=== PATIENT | female | born 1940 | race Caucasian/White ===

== ENCOUNTER → 2017-08-28 | Outpatient (CLI) | payer MEDICARE ==
[2017-08-28 18:44] LABS: PLATELET COUNT, AUTOMATED 203 10^3/uL (150-450)
[2017-08-28 19:04] LABS: INR 0.91; PROTHROMBIN TIME 12.3 SECONDS (12.4-14.5)
== END ==
LOC: M SMT 15:14
DX: J44.9 Chronic obstructive pulmonary disease, unspecified (principal); Z79.01 Long term (current) use of anticoagulants
CPT/HCPCS: 85049

== ENCOUNTER → 2017-09-12 | Outpatient (CLI) | payer MEDICARE ==
[~2017-09-12] MED LIST: LIDOCAINE 1% MDV 20ML VIAL As Ordered
== END ==
LOC: M RADPRO 08:20
DX: R91.8 Other nonspecific abnormal finding of lung field (principal); C34.90 Malignant neoplasm of unspecified part of unspecified bronchus or lung; I51.7 Cardiomegaly; Z88.2 Allergy status to sulfonamides; Z88.8 Allergy status to other drugs, medicaments and biological substances; Z91.040 Latex allergy status; Z79.82 Long term (current) use of aspirin; Z79.899 Other long term (current) drug therapy
CPT/HCPCS: 32405

== ENCOUNTER 2018-12-31 11:55 | Inpatient (IN) | payer MEDICARE ==
[~2018-12-31] VITALS: Ht 157.5 cm; Wt 66.0 kg
[~2018-12-31 11:55] MED LIST changes: +ADVA230A INH; +ALBU0.63 INH; +ALBU20IN INH; +ALDA25TA2 PO; +ASPI81TA90 PO; +BROV15NE IN; +BUDE0.5S IN; +BUDE180INH INH; +CALC600T7 PO; +CLOT1CRE4; +FLUC10TA PO; +GLIP5TAB2 PO; +GLUC5TAB3 PO; +JANU100T PO; +LEFL20TA PO; +LEVO500T PO; -LIDOCAINE 1% MDV 20ML VIAL As Ordered; +LIPI20TA PO; +LORA1TAB PO; +MAPA500T17 PO; +MEDR8TAB PO; +METO25TA2 PO; +MUCI600T34 PO; +NEXI1CAP3 PO; +NORV2TAB PO; +OCEA0.65; +PARO10TA10 PO; +PAXI20TA3 PO; +PROT40IN4 IV; +SING4GRA PO; +SPIR25TA2 PO; +VITAD1000T PO; +XANA0.5T PO; +oxygen; +spiriva INH
[2018-12-31] MEDS ORDERED: MORPHINE 2 MG/ML 1ML SYRINGE (J2270) IV ONE (13:00)
[2018-12-31 13:15] LABS: BASO # 0.1 10^3/uL (0.0-0.2); BASO % 0.3 % (0.0-1.0); EOS # 0.2 10^3/uL (0.0-0.50); EOS % 0.8 % (0.0-3.0); HEMATOCRIT 39.4 % (36.0-47.0); LYMPH # 2.1 10^3/uL (1.5-4.5); LYMPH % 10.9 % (24.0-44.0); MEAN CORPUSCULAR HEMOGLOBIN 25.8 pg (27.0-33.0); MEAN CORPUSCULAR HGB CONC 30.5 g/dl (32.0-36.5); MEAN CORPUSCULAR VOLUME 84.7 fl (80.0-96.0); MONO # 1.6 10^3/uL (0.0-0.8); MONO % 8.4 % (0.0-5.0); NEUTROPHILS # 15.3 10^3/uL (1.8-7.7); PLATELET COUNT, AUTOMATED 532 10^3/uL (150-450); RED BLOOD COUNT 4.65 10^6/uL (4.00-5.40); WHITE BLOOD COUNT 19.4 10^3/uL (4.0-10.0)
--- NOTE | 2018-12-31 13:34 | REP ---
CT Head without contrast HISTORY: Altered mental status COMPARISON: None Areas of decreased attenuation are present in the periventricular and subcortical white matter. This represents small-vessel ischemic disease. There is no intraparenchymal hemorrhage, acute infarct, mass or midline shift. The ventricular system and cortical sulci are dilated consistent with moderate volume loss. There is no extra cerebral collection. There is no fracture. The visualized sinuses are clear. IMPRESSION: 1. Small vessel ischemic disease. 2. Moderate volume loss. Electronically Signed by Mark Lees MD 12/31/2018 01:26 P
--- NOTE | 2018-12-31 13:43 | REP ---
CT cervical spine without contrast HISTORY: Altered mental status COMPARISON: None There is no acute fracture . Disc bulges are present at the C3-4 and C4-5 levels. Disc bulges with associated osteophyte formation are present at the C5-6 and C6-7 levels. There is minimal narrowing of the spinal canal. Uncinate process and/or facet hypertrophy are present at the C2-3 through C6-7 levels. These findings produce minimal to moderate narrowing of the neural foramina. The C4-5 through C7-T1 intervertebral discs are decreased in height consistent with disc degeneration. There are 2 mm of anterior subluxation of C4-5. IMPRESSION: 1. There is no acute fracture. 2. There is cervical spondylosis at the C2-3 through C7-T1 levels. Electronically Signed by Mark Lees MD 12/31/2018 01:35 P
[2018-12-31 13:45] LABS: ALBUMIN 2.8 GM/DL (3.2-5.2); ALT/SGPT 16 U/L (12-78); BILIRUBIN,DIRECT 0.1 MG/DL (0.0-0.2); BILIRUBIN,TOTAL 0.4 MG/DL (0.2-1.0); BLOOD UREA NITROGEN 20 MG/DL (7-18); CALCIUM LEVEL 10.5 MG/DL (8.8-10.2); CARBON DIOXIDE LEVEL 36 MEQ/L (21-32); CHLORIDE LEVEL 88 MEQ/L (98-107); CK-MB VALUE MASS < 1.0 NG/ML (<3.6); CPK CREATINE PHOSPHOKINASE 41 U/L (26-192); CREATININE FOR GFR 1.46 MG/DL (0.55-1.30); GLOMERULAR FILTRATION RATE 36.8 (>39); GLUCOSE, FASTING 187 MG/DL (70-100); MB/CK RELATIVE INDEX 2.44 (< OR =4); POTASSIUM SERUM 4.7 MEQ/L (3.5-5.1); SODIUM LEVEL 131 MEQ/L (136-145); TOTAL PROTEIN 7.4 GM/DL (6.4-8.2); TROPONIN I < 0.02 NG/ML (< 0.10)
--- NOTE | 2018-12-31 13:53 | REP ---
CT thoracic spine without contrast. HISTORY: Neck pain COMPARISON : None There is no acute fracture or subluxation. There is no a definite disc bulge or herniation. Posterior osteophytes are present at the T7-8 and T9 levels. There is minimal narrowing of the spinal canal. The neural foramina are patent. There is loss of height of multiple thoracic intervertebral discs. Vacuum phenomenon is present at the T6-7 through T10-11 levels. These findings are consistent with disc degeneration. Anterior osteophytes are present throughout the thoracic spine. Parenchymal density is present in the the left lower lobe consistent with atelectasis or infiltrate. A left pleural effusion is present. Atherosclerotic calcification is present in the thoracic aorta. IMPRESSION: 1. There is no acute fracture or subluxation. 2. Degenerative change as described above. 3. Left lower lobe atelectasis or infiltrate and left pleural effusion. Electronically Signed by Mark Lees MD 12/31/2018 01:44 P
--- NOTE | 2018-12-31 14:08 | REP ---
CT LUMBAR SPINE WITHOUT CONTRAST: HISTORY: Altered mental status. A diffuse disc bulge is present at the L1-2 level. There is minimal compression of the thecal sac. The L1 nerves exit the neural foramina without compression. A diffuse disc bulge is present at the L2-3 level. There is minimal compression of the thecal sac. The L2 nerves exit the neural foramina without compression. A diffuse disc bulge is present at the L3-4 level. There is hypertrophy of the ligamenta flava and posterior articulating facets. These findings produce mild central canal stenosis. There is compression of the left L3 nerve in the neural foramen. The right L3 nerve exits the neural foramen without compression. A diffuse disc bulge is present at the L4-5 level. There is hypertrophy of the ligamenta flava and posterior articulating facets. These findings produce mild central canal stenosis. There is compression of the left L4 nerve in the neural foramen. The right L4 nerve exits the neural foramen without compression. A diffuse disc bulge is present at the L5-S1 level. There is minimal compression of the thecal sac. There is hypertrophy of the posterior articulating facets. The L5 nerves exit the neural foramina without compression. The lumbar intervertebral discs are decreased in height. Vacuum phenomenon is present at the L1-2, L3-4 and L4-5 levels. These findings are consistent with disc degeneration. There is no fracture or subluxation. The left kidney is atrophic. Atherosclerotic calcification is present in the abdominal aorta. IMPRESSION: 1. Diffuse disc bulges at the L1-2, L2-3 and L5-S1 levels with minimal thecal sac compression. 2. Mild central canal stenosis at the L3-4 and L4-5 levels secondary to disc bulge, ligamentous and facet hypertrophy. Electronically Signed by Mark Lees MD 12/31/2018 02:13 P
[2018-12-31] MEDS ORDERED: PERCOCET 5MG/325MG TAB PO ONE (14:45)
[2018-12-31] MEDS ORDERED: NALOXONE INJ 0.4 MG/1 ML VIAL (J2310) IV PRN (15:00)
[2018-12-31] MEDS ORDERED: ONDANSETRON 4MG/2ML VIAL (J2405) IV PRN (15:00)
[2018-12-31] MEDS ORDERED: MORPHINE 1MG/ML IN 0.9% NACL 100ML IV BAG IV PRN (15:00)
[2018-12-31] MEDS ORDERED: NS 1,000 ML IV SCH ×2 (15:00)
[2018-12-31] MEDS ORDERED: IPRATROPIUM 0.5MG/ALBUTEROL 2.5MG INH SOL UD 3ML (DUONEB)(J7620) NEB PRN (15:00)
[2018-12-31] MEDS ORDERED: NALBUPHINE HCL 10 MG/ML AMP (J2300) IV PRN (15:00)
[2018-12-31] MEDS ORDERED: EPIDURAL/PCA KEYS XX PRN (15:00)
[2018-12-31] MEDS ORDERED: PIPERACILLIN/TAZOBACTAM SOD 3.375 GM in D5W MINI-BAG PLUS 50 ML IV ONE (15:00)
[2018-12-31] MEDS ORDERED: diphenhydrAMINE INJ 50MG/ML VIAL (J1200) IV PRN (15:00)
--- NOTE | 2018-12-31 15:06 | REP ---
Portable chest x-ray: Single view. History: Altered mental status. Comparison study: September 12, 2017. Findings: There is increased density in the left base opacifying the lower half of the left hemithorax as a new finding. This obscures the left heart border. It is compatible with combination of pleural fluid and parenchymal disease in the left lower lobe, atelectasis versus infiltrate. Moderate cardiomegaly is observed. There is linear fibrosis in the right base. No right effusion is seen. Some vascular calcification is noted. Interstitial markings are diffusely somewhat prominent. Impression: Left pleural effusion with atelectasis and/or infiltrate left base. New finding. Moderate cardiomegaly. Right base linear fibrosis. Electronically Signed by Michael Erazo MD 12/31/2018 08:13 P
[2018-12-31] MEDS ORDERED: SCOPOLAMINE 1MG TRANSDERMAL PATCH TOP PRN ×2 (15:15→18:30)
[2018-12-31] MEDS ORDERED: FLEET ENEMA PR PRN (15:15)
[2018-12-31] MEDS ORDERED: LORA0.5T11 PO (15:26)
[2018-12-31] MEDS ORDERED: BROV15NE INH (15:26)
[2018-12-31] MEDS ORDERED: PARO40TA3 PO (15:26)
[2018-12-31] MEDS ORDERED: PRED10TA2 PO (15:26)
[2018-12-31] MEDS ORDERED: METO1TAB33 PO (15:26)
[2018-12-31] MEDS ORDERED: ACET-907 PO (15:26)
[2018-12-31] MEDS ORDERED: PANT-23 PO (15:26)
[2018-12-31] MEDS ORDERED: FURO40TA2 PO (15:26)
[2018-12-31] MEDS ORDERED: MORP20SOL PO (15:26)
[2018-12-31] MEDS ORDERED: AMLO10TA5 PO (15:26)
[2018-12-31] MEDS ORDERED: MOM 30ML SUSPENSION UDC PO PRN (15:30)
[2018-12-31] MEDS ORDERED: BIOF4GEL2 TOP (15:30)
[2018-12-31] MEDS ORDERED: METAMUCIL (PSYLLIUM) PACKET PO PRN (15:30)
[2018-12-31] MEDS ORDERED: ASPI81TA85 PO (15:30)
[2018-12-31] MEDS ORDERED: ANALGESIC BALM CRM 120 GM TOP PRN (15:45)
--- NOTE | 2018-12-31 15:50 | HPEPDOC ---
General Date of Admission December 31, 2018 at 15:13 Chief Complaint The patient is a 78-year-old female admitted with a reason for visit of Squamous Cell Lung Cancer. 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 It was noted that patient was in hospice before but no longer in hospice as pt went to the ER prior while she was in hospice. Patient reported constant severe sharp pain in b/l lumbar back pain and b/l shoulder pain that worsens with movement. She reported chills and that she had been coughing up blood starting 4 days ago. When being asked if she has any sputum, pt answered yes and replied that she has pink color sputum, reported chills but no fever. Reported 1 sick contact months ago. Denies any chest pain, palpitation, SOB. Pt reported mild abdominal pain but reported constipation 1 BM every 3 days, and that her abd pain was improved after BM. PT reported that at this time she will want to be COMFORT MEASURE ONLY Home Medications Scheduled Amlodipine Besylate (Amlodipine Besylate) 10 Mg Tablet, 10 MG PO DAILY, (Reported) Arformoterol Tartrate (Brovana) 15 Mcg/2 Ml Vial.neb, 15 MCG INH BID, (Reported) Aspirin (Aspir 81) 81 Mg Tablet.dr, 81 MG PO DAILY, (Reported) Furosemide (Furosemide) 40 Mg Tablet, 40 MG PO DAILY, (Reported) Lorazepam (Lorazepam) 0.5 Mg Tablet, 0.25 MG PO BID, (Reported) Metoprolol Succinate (Metoprolol Succinate) 100 Mg Tab.er.24h, 100 MG PO DAILY, (Reported) Pantoprazole Sodium (Pantoprazole Sodium) 40 Mg Tablet.dr, 40 MG PO DAILY, (Reported) Paroxetine HCl (Paroxetine) 40 Mg Tablet, 40 MG PO QHS, (Reported) Prednisone (Prednisone) 10 Mg Tablet, 20 MG PO DAILY, (Reported) Scheduled PRN Acetaminophen (Tylenol) 325 Mg Tablet, 650 MG PO Q4H PRN for PAIN, (Reported) Menthol (Biofreeze) 118 Ml Gel..ml., 1 APLCT TOP QID PRN for PAIN, (Reported) APPLY TO ENTIRE BACK Morphine Sulfate (Morphine Sulfate Concentrate) 100 Mg/5 Ml Solution, 0.5 ML PO Q2H PRN for PAIN, (Reported) Allergies Coded Allergies: Sulfa (Sulfonamide Antibiotics) (Verified Allergy, Unknown, 12/31/18) Past Medical History Medical History 1. Stage 4 Squamous cell carcinoma of the lung 2. Bronchiectasis 3. Hx of bronchospasm 4. Rheumatoid arthritis 5. Type 2 DM 6. Hypercholesterolemia 7. HTN 8. KALA; non-compliant with CPAP 9. Hx of rheumatoid lung disease 10. Hx of hysterectomy 11. Bladder suspension 12. Hx of "intestinal repair" 13. Vitamin D deficiency 14. Long hx of CAD 15. PMH of Oral Candidiasis 16. PMH of Vaginal yeast Family History Mother at 77 yo from cancer Father at 59 yo from heart disease 4 brothers who from heart disease and one sister who from lung cancer Social History * Smoker: Denies, former Smoker (former 20 pkX yr hx) Alcohol: Denies Drugs: denies Recent Travel/Sick Contacts: Reports: Recent sick contacts (reported sick contact with cold-like symptoms months ago) Pt was in hospice, now lives at home A-FIB/CHADSVASC A-FIB History Current/History of A-Fib/PAF?: No Review of Systems Constitutional: Reports: Chills, Other (decreased appetite); Denies: Fever Pulmonary: Reports: Cough, Other Symptoms (hemoptysis); Denies: Dyspnea, Pleuritic Chest Pain Cardiovascular: Denies: Chest Pain, Palpitations Gastrointestinal: Reports: Abdominal Pain, Constipation; Denies: Nausea, Vomiting, Diarrhea, Melena, Hematochezia Musculoskeletal: Reports: Back Pain (b/l lumbar back pain), Shoulder Pain (b/l) Neurological: Denies: Weakness, Numbness, Change in speech, Confusion Physical Examination General Exam: Positive: Alert, Mild Distress Eye Exam: Positive: Conjunctiva & lids normal; Negative: Sclera icteric ENT Exam: Positive: Atraumatic, Mucous membr. moist/pink Neck Exam: Positive: Supple Chest Exam: Positive: Clear to auscultation, Normal air movement; Negative: Rales, Rhonchi, Wheezing Heart Exam: Positive: Rate Normal, Regular Rhythm, Normal S1, Normal S2; Negative: Murmurs Abdomen Exam: Positive: BS Hypoactive, Soft; Negative: Tenderness Extremity Exam: Positive: Normal pulses Skin Exam: Positive: Nl turgor and temperature Neuro Exam: Positive: Normal Speech, Normal Tone Psych Exam: Positive: Mental status NL, Memory Intact, Oriented x 3 Vital Signs Vital Signs Date Time Temp Pulse Resp B/P (MAP) Pulse Ox O2 Delivery O2 Flow Rate FiO2 12/31/18 15:18 98.8 91 18 159/67 96 3.0 12/31/18 14:45 Nasal Cannula Laboratory Data Labs 24H Laboratory Tests 2 12/31/18 12:57: Anion Gap 7L, Glomerular Filtration Rate 36.8L, Calcium Level 10.5H, Aspartate Amino Transf (AST/SGOT) 20, Alanine Aminotransferase (ALT/SGPT) 16, Alkaline Phosphatase 85, Total Bilirubin 0.4, Direct Bilirubin 0.1, Total Creatine Kinase 41, Creatine Kinase MB < 1.0, Creatine Kinase MB Relative Index 2.44, Troponin I < 0.02, Total Protein 7.4, Albumin 2.8L, Albumin/Globulin Ratio 0.61L, Thyroid Stimulating Hormone (TSH) 1.700 12/31/18 12:58: Immature Granulocyte % (Auto) 0.6, White Blood Count 19.4H, Red Blood Count 4.65, Hemoglobin 12.0, Hematocrit 39.4, Mean Corpuscular Volume 84.7, Mean Corpuscular Hemoglobin 25.8L, Mean Corpuscular Hemoglobin Concent 30.5L, Red Cell Distribution Width 15.4H, Platelet Count 532H, Neutrophils (%) (Auto) 79.0H, Lymphocytes (%) (Auto) 10.9L, Monocytes (%) (Auto) 8.4H, Eosinophils (%) (Auto) 0.8, Basophils (%) (Auto) 0.3, Neutrophils # (Auto) 15.3H, Lymphocytes # (Auto) 2.1, Monocytes # (Auto) 1.6H, Eosinophils # (Auto) 0.2, Basophils # (Auto) 0.1, Nucleated Red Blood Cells % (auto) 0.0, Lactic Acid Level 1.2 CBC/BMP Laboratory Tests 12/31/18 12:57 12/31/18 12:58 Red Blood Count 4.65, Mean Corpuscular Volume 84.7, Mean Corpuscular Hemoglobin 25.8 L, Mean Corpuscular Hemoglobin Concent 30.5 L, Red Cell Distribution Width 15.4 H, Neutrophils (%) (Auto) 79.0 H, Lymphocytes (%) (Auto) 10.9 L, Monocytes (%) (Auto) 8.4 H, Eosinophils (%) (Auto) 0.8, Basophils (%) (Auto) 0.3, Neutrophils # (Auto) 15.3 H, Lymphocytes # (Auto) 2.1, Monocytes # (Auto) 1.6 H, Eosinophils # (Auto) 0.2, Basophils # (Auto) 0.1 Problems (1) Acute back pain Status: Acute Problem Text: Reported acute intractable b/l shoulder and lumbar back pain at h ome. Lumbar, thoracic, and cervical x ray showed spondylopathy without radiographic signs of metastasis. Pt reported would like to be on COMMODITIES MANAGER only. Patient will be on MEDIA PROFESSIONAL and continue to monitor the pt; may increase/add pain meds if required (2) Squamous cell lung cancer Problem Text: Stage 4 squamous cell carcinoma of the lung. Pt saw Dr. Welch as outpt and decided not to pursue any treatment. She was in hospice prior but currently lives at home with MEDIA PROFESSIONAL for pain control. Pt reported coughing up blood starting from 4 days ago. Pt reported that she wants to be comfort measure only. Currently sat well on 3L NC. MEDIA PROFESSIONAL ordered. Left pleural effusion vs infiltrate. Hospice consult ordered (3) Community acquired pneumonia Problem Text: Reported chills and productive cough with pink color sputum. Pt will be on Moxifloaxacin. Cont to monitor the pt. Tylenol PRN. (4) Constipation Problem Text: Pt reported hard stool every 3 days. Milk of mag, metamucil, and fleet enema PRN. (5) Type 2 diabetes mellitus Problem Text: Pt not on DM meds at home. COMMODITIES MANAGER, cont to monitor the pt (6) Depression with anxiety Problem Text: Cont home med Paroxetine with Ativan (7) Rheumatoid lung disease with rheumatoid arthritis Problem Text: Pt not on outpt meds for RA. On Serverent and duoneb. Plan / VTE VTE Prophylaxis Ordered?: No (COMMODITIES MANAGER) Plan IVF: Initiate BOWEN SIERRA DO December 31, 2018 15:50
[2018-12-31] MEDS ORDERED: PILL CRUSHER/CUTTER 1 EACH XX PRN (16:00)
[2018-12-31] MEDS: MOXIFLOXACIN 400 MG TAB PO SCH (17:14)
[2018-12-31 17:35] VITALS: BP 145/68
[2018-12-31] MEDS ORDERED: ACETAMINOPHEN TAB 650MG DOSE (2X325MG) PO PRN (17:45)
[2018-12-31] MEDS: SALMETEROL DISKUS 50MCG INHALER (SEREVENT) INH SCH (20:00)
[2018-12-31] MEDS: IPRATROPIUM 0.5MG/ALBUTEROL 2.5MG INH SOL UD 3ML (DUONEB)(J7620) NEB SCH (20:41)
[2018-12-31] MEDS: LORazepam 0.5 MG TAB PO SCH (21:07)
[2018-12-31] MEDS: PARoxetine 20 MG TAB PO SCH (21:08)
[2018-12-31] MEDS: MORPHINE 10MG/0.5ML ORAL CONCENTRATE SOLUTION U/D SL PRN (23:42)
[2019-01-01] MEDS: IPRATROPIUM 0.5MG/ALBUTEROL 2.5MG INH SOL UD 3ML (DUONEB)(J7620) NEB SCH ×4 (02:00→19:39)
[2019-01-01] MEDS: MOXIFLOXACIN 400 MG TAB PO SCH (05:52)
[2019-01-01 06:00] VITALS: BP 126/89
[2019-01-01] MEDS: SALMETEROL DISKUS 50MCG INHALER (SEREVENT) INH SCH ×2 (07:22→19:39)
[2019-01-01] MEDS: predniSONE 10 MG TAB PO SCH (09:57)
[2019-01-01] MEDS: PANTOPRAZOLE 40MG TAB (PROTONIX) PO SCH (09:57)
[2019-01-01] MEDS: ASPIRIN 81 MG ENTERIC TAB PO SCH (09:57)
[2019-01-01] MEDS: amLODIPine 10 MG TAB PO SCH (09:57)
[2019-01-01 09:58] VITALS: BP 126/89
[2019-01-01] MEDS: METOPROLOL SUCC (TopROL XL) 100MG *XL* TAB PO SCH (09:58)
[2019-01-01] MEDS: LORazepam 0.5 MG TAB PO SCH ×2 (09:58→20:19)
[2019-01-01] MEDS: **NOTE PATIENT COMMENT** MISC XX SCH (09:59)
[2019-01-01] MEDS: LORazepam 2 MG/ML VIAL (J2060) IV PRN ×3 (13:14→22:03)
--- NOTE | 2019-01-01 13:56 | IPNPDOC ---
Date Seen The patient was seen on 01/01/19. Progress Note SUBJECTIVE: Yesterday on iv morphine cutter and edge trimmer pump, pt became lethargic. Per family, pt was fine with roxanol at home, so roxanol was ordered prn for pain. Awaiting Hospice acceptance . 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 no c/o pain, but was very agitated this morning, requiring a sitter. PHYSICAL EXAMINATION: VITALS: PLS SEE BELOW General Exam: Positive: Alert, Mild Distress Eye Exam: Positive: Conjunctiva & lids normal; Negative: Sclera icteric ENT Exam: Positive: Atraumatic, Mucous membr. moist/pink Neck Exam: Positive: Supple Chest Exam: Positive: Clear to auscultation, Normal air movement; Negative: Rales, Rhonchi, Wheezing Heart Exam: Positive: Rate Normal, Regular Rhythm, Normal S1, Normal S2; Negative: Murmurs Abdomen Exam: Positive: BS Hypoactive, Soft; Negative: Tenderness Extremity Exam: Positive: Normal pulses Skin Exam: Positive: Nl turgor and temperature Neuro Exam: Positive: Normal Speech, Normal Tone Psych Exam: Positive: Mental status NL, Memory Intact, Oriented x 3 LABORATORY DATA, IMAGING STUDIES, MICROBIOLOGY: REVIEWED, PLS SEE BELOW ASSESSMENT AND PLAN: Pt is a 78 yo female with PMH of 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 It was noted that patient was in hospice before but no longer in hospice as pt went to the ER prior while she was in hospice. Patient reported constant severe sharp pain in b/l lumbar back pain and b/l shoulder pain that worsens with movement. She reported chills and that she had been coughing up blood starting 4 days ago. When being asked if she has any sputum, pt answered yes and replied that she has pink color sputum, reported chills but no fever. Reported 1 sick contact months ago. Denies any chest pain, palpitation, SOB. Pt reported mild abdominal pain but reported constipation 1 BM every 3 days, and that her abd pain was improved after BM. PT reported that at this time she will want to be COMFORT MEASURE ONLY Squamous cell lung cancer . Pt saw Dr. Welch as outpt and decided not to pursue any treatment. She was in hospice prior but currently lives at home with SIGN LETTERER for pain control. Pt reported coughing up blood starting from 4 days ago. Pt reported that she wants to be comfort measure only. Currently sat well on 3L NC. SIGN LETTERER ordered. Left pleural effusion vs infiltrate. Hospice consult ordered Community acquired pneumonia on Moxifloaxacin. Cont to monitor the pt. Tylenol PRN. Constipation Milk of mag, metamucil, and fleet enema PRN. 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 On Serverent and duoneb. disposition: pfs consulted for hospice referral . 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
[2019-01-01 14:00] VITALS: BP 125/80
[2019-01-01] MEDS: PARoxetine 20 MG TAB PO SCH (19:41)
[2019-01-02] MEDS: LORazepam 2 MG/ML VIAL (J2060) IV PRN ×6 (01:07→21:55)
[2019-01-02] MEDS: IPRATROPIUM 0.5MG/ALBUTEROL 2.5MG INH SOL UD 3ML (DUONEB)(J7620) NEB SCH ×4 (02:00→20:00)
[2019-01-02] MEDS: MORPHINE 10MG/0.5ML ORAL CONCENTRATE SOLUTION U/D SL PRN ×3 (03:58→19:05)
[2019-01-02] MEDS: MOXIFLOXACIN 400 MG TAB PO SCH (05:11)
[2019-01-02 06:00] VITALS: BP 151/63
[2019-01-02] MEDS: ASPIRIN 81 MG ENTERIC TAB PO SCH (07:43)
[2019-01-02] MEDS: amLODIPine 10 MG TAB PO SCH (07:43)
[2019-01-02] MEDS: LORazepam 0.5 MG TAB PO SCH ×2 (07:43→20:20)
[2019-01-02] MEDS: PANTOPRAZOLE 40MG TAB (PROTONIX) PO SCH (07:43)
[2019-01-02] MEDS: predniSONE 10 MG TAB PO SCH (07:43)
[2019-01-02] MEDS: METOPROLOL SUCC (TopROL XL) 100MG *XL* TAB PO SCH (07:43)
[2019-01-02 07:47] LABS: BASO % 0.2 % (0.0-1.0); EOS # 0.4 10^3/uL (0.0-0.50); EOS % 1.9 % (0.0-3.0); HEMATOCRIT 37.4 % (36.0-47.0); HEMOGLOBIN 11.2 g/dl (12.0-15.5); LYMPH # 1.2 10^3/uL (1.5-4.5); LYMPH % 6.3 % (24.0-44.0); MEAN CORPUSCULAR HEMOGLOBIN 25.6 pg (27.0-33.0); MEAN CORPUSCULAR HGB CONC 29.9 g/dl (32.0-36.5); MEAN CORPUSCULAR VOLUME 85.4 fl (80.0-96.0); MONO # 1.9 10^3/uL (0.0-0.8); MONO % 9.5 % (0.0-5.0); NEUTROPHILS # 15.9 10^3/uL (1.8-7.7); NEUTROPHILS % 81.6 % (36.0-66.0); PLATELET COUNT, AUTOMATED 483 10^3/uL (150-450); RED BLOOD COUNT 4.38 10^6/uL (4.00-5.40); WHITE BLOOD COUNT 19.5 10^3/uL (4.0-10.0)
[2019-01-02] MEDS: SALMETEROL DISKUS 50MCG INHALER (SEREVENT) INH SCH (08:00)
[2019-01-02 08:16] LABS: CALCIUM LEVEL 9.7 MG/DL (8.8-10.2); CREATININE FOR GFR 1.45 MG/DL (0.55-1.30); GLOMERULAR FILTRATION RATE 37.1 (>39); POTASSIUM SERUM 4.5 MEQ/L (3.5-5.1)
--- NOTE | 2019-01-02 08:20 | IPNPDOC ---
Date Seen The patient was seen on 01/02/19. Progress Note SUBJECTIVE: Pt was agitated yesterday requiring a sitter. pt is still very much confused but much more subdued, mumbling in bed lying on her left side. 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 PHYSICAL EXAMINATION: VITALS: PLS SEE BELOW General Exam: Positive: Alert, Mild Distress Eye Exam: Positive: Conjunctiva & lids normal; Negative: Sclera icteric ENT Exam: Positive: Atraumatic, Mucous membr. moist/pink Neck Exam: Positive: Supple Chest Exam: Positive: Clear to auscultation, Normal air movement; Negative: Rales, Rhonchi, Wheezing Heart Exam: Positive: Rate Normal, Regular Rhythm, Normal S1, Normal S2; Negative: Murmurs Abdomen Exam: Positive: BS Hypoactive, Soft; Negative: Tenderness Extremity Exam: Positive: Normal pulses Skin Exam: Positive: Nl turgor and temperature Neuro Exam: Positive: Normal Speech, Normal Tone Psych Exam: Positive: Mental status NL, Memory Intact, Oriented x 3 LABORATORY DATA, IMAGING STUDIES, MICROBIOLOGY: REVIEWED, PLS SEE BELOW ASSESSMENT AND PLAN: Pt is a 78 yo female with PMH of 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 It was noted that patient was in hospice before but no longer in hospice as pt went to the ER prior while she was in hospice. Patient reported constant severe sharp pain in b/l lumbar back pain and b/l shoulder pain that worsens with movement. She reported chills and that she had been coughing up blood starting 4 days ago. When being asked if she has any sputum, pt answered yes and replied that she has pink color sputum, reported chills but no fever. Reported 1 sick contact months ago. Denies any chest pain, palpitation, SOB. Pt reported mild abdominal pain but reported constipation 1 BM every 3 days, and that her abd pain was improved after BM. PT reported that at this time she will want to be COMFORT MEASURE ONLY Squamous cell lung cancer Pt saw Dr. Welch as outpt and decided not to pursue any treatment. She was in hospice prior but currently lives at home with SHRIMP PEELER for pain control. Pt reported coughing up blood starting from 4 days ago. Pt reported that she wants to be comfort measure only. Currently sat well on 3L NC. SHRIMP PEELER ordered. Left pleural effusion vs infiltrate. 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 Cont to monitor the pt. Tylenol PRN. Constipation Milk of mag, metamucil, and fleet enema PRN. Type 2 diabetes mellitus FISCAL CLERK, cont to monitor the pt Depression with anxiety Cont home med Paroxetine with Ativan Rheumatoid lung disease with rheumatoid arthritis Pt not on outpt meds for RA. On Serverent and duoneb. disposition: pfs consulted for hospice referral . 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 A-FIB/CHADSVASC A-FIB History Current/History of A-Fib/PAF?: No Current Oral Anticoagulant The: No VS, I&O, 24H, Fishbone Vital Signs/I&O Vital Signs Date Time Temp Pulse Resp B/P (MAP) Pulse Ox O2 Delivery O2 Flow Rate FiO2 01/02/19 06:00 99.7 84 20 151/63 (92) 94 01/01/19 21:50 3.0 12/31/18 17:16 Nasal Cannula I&O- Last 24 Hours up to 6 AM 01/02/19 05:59 Intake Total 895 ml Output Total 0 ml Balance 895 ml Laboratory Data 24H LABS Laboratory Tests 2 01/02/19 07:32: Immature Granulocyte % (Auto) 0.5, White Blood Count 19.5H, Red Blood Count 4.38, Hemoglobin 11.2L, Hematocrit 37.4, Mean Corpuscular Volume 85.4, Mean Corpuscular Hemoglobin 25.6L, Mean Corpuscular Hemoglobin Concent 29.9L, Red Cell Distribution Width 15.8H, Platelet Count 483H, Neutrophils (%) (Auto) 81.6H, Lymphocytes (%) (Auto) 6.3L, Monocytes (%) (Auto) 9.5H, Eosinophils (%) (Auto) 1.9, Basophils (%) (Auto) 0.2, Neutrophils # (Auto) 15.9H, Lymphocytes # (Auto) 1.2L, Monocytes # (Auto) 1.9H, Eosinophils # (Auto) 0.4, Basophils # (Aut o) 0.0, Nucleated Red Blood Cells % (auto) 0.0, Anion Gap 6L, Glomerular Filtration Rate 37.1L, Blood Urea Nitrogen 22H, Creatinine 1.45H, Sodium Level 135L, Potassium Level 4.5, Chloride Level 95L, Carbon Dioxide Level 34H, Calcium Level 9.7 CBC/BMP Laboratory Tests 01/02/19 07:32 Red Blood Count 4.38, Mean Corpuscular Volume 85.4, Mean Corpuscular Hemoglobin 25.6 L, Mean Corpuscular Hemoglobin Concent 29.9 L, Red Cell Distribution Width 15.8 H, Neutrophils (%) (Auto) 81.6 H, Lymphocytes (%) (Auto) 6.3 L, Monocytes (%) (Auto) 9.5 H, Eosinophils (%) (Auto) 1.9, Basophils (%) (Auto) 0.2, Neutrophils # (Auto) 15.9 H, Lymphocytes # (Auto) 1.2 L, Monocytes # (Auto) 1.9 H, Eosinophils # (Auto) 0.4, Basophils # (Auto) 0.0, Calcium Level 9.7 AILYN KEITH MD January 02, 2019 08:20
[2019-01-02] MEDS: **NOTE PATIENT COMMENT** MISC XX SCH (09:00)
--- NOTE | 2019-01-02 17:32 | ECGEPIP ---
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
[2019-01-02] MEDS: PARoxetine 20 MG TAB PO SCH (20:21)
[2019-01-03] MEDS: LORazepam 2 MG/ML VIAL (J2060) IV PRN ×4 (00:39→21:50)
[2019-01-03] MEDS: IPRATROPIUM 0.5MG/ALBUTEROL 2.5MG INH SOL UD 3ML (DUONEB)(J7620) NEB SCH ×4 (02:00→20:17)
[2019-01-03] MEDS: MOXIFLOXACIN 400 MG TAB PO SCH (05:22)
[2019-01-03] MEDS: MORPHINE 10MG/0.5ML ORAL CONCENTRATE SOLUTION U/D SL PRN ×4 (05:49→21:50)
[2019-01-03 06:00] VITALS: BP 160/72
[2019-01-03] MEDS: SALMETEROL DISKUS 50MCG INHALER (SEREVENT) INH SCH ×3 (08:00→20:00)
[2019-01-03] MEDS: LORazepam 0.5 MG TAB PO SCH ×2 (08:50→21:00)
[2019-01-03] MEDS: PANTOPRAZOLE 40MG TAB (PROTONIX) PO SCH (08:51)
[2019-01-03] MEDS: ASPIRIN 81 MG ENTERIC TAB PO SCH (08:51)
[2019-01-03] MEDS: amLODIPine 10 MG TAB PO SCH (08:51)
[2019-01-03] MEDS: predniSONE 10 MG TAB PO SCH (08:51)
[2019-01-03] MEDS: METOPROLOL SUCC (TopROL XL) 100MG *XL* TAB PO SCH (08:52)
[2019-01-03] MEDS: **NOTE PATIENT COMMENT** MISC XX SCH (08:52)
--- NOTE | 2019-01-03 10:29 | IPNPDOC ---
Date Seen The patient was seen on 01/03/19. 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 just received ativan due to severe agitation per RN, still requiring a sitter. Per sitter, pt usually gets belligerent when she wakes up, and has not been eating well, only about 10-15% of her meals. Pt snacks on her raspberries at the bedside. PHYSICAL EXAMINATION: VITALS: PLS SEE BELOW General Exam: sedated. dry mucus membranes Eye Exam: Positive: Conjunctiva & lids normal; Negative: Sclera icteric ENT Exam: Positive: Atraumatic Neck Exam: Positive: Supple Chest Exam: Positive: Clear to auscultation, Normal air movement; Negative: Rales, Rhonchi, Wheezing Heart Exam: Positive: Rate Normal, Regular Rhythm, Normal S1, Normal S2; Negative: Murmurs Abdomen Exam: Positive: BS Hypoactive, Soft; Negative: Tenderness Extremity Exam: Positive: Normal pulses Skin Exam: Positive: Nl turgor and temperature Neuro Exam: Positive: Normal Speech, Normal Tone Psych Exam: Positive: Mental status NL, Memory Intact, Oriented x 3 LABORATORY DATA, IMAGING STUDIES, MICROBIOLOGY: REVIEWED, PLS SEE BELOW ASSESSMENT AND PLAN: Pt is a 78 yo female with PMH of 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 It was noted that patient was in hospice before but no longer in hospice as pt went to the ER prior while she was in hospice. Patient reported constant severe sharp pain in b/l lumbar back pain and b/l shoulder pain that worsens with movement. She reported chills and that she had been coughing up blood starting 4 days ago. When being asked if she has any sputum, pt answered yes and replied that she has pink color sputum, reported chills but no fever. Reported 1 sick contact months ago. Denies any chest pain, p alpitation, SOB. Pt reported mild abdominal pain but reported constipation 1 BM every 3 days, and that her abd pain was improved after BM. PT reported that at this time she will want to be COMFORT MEASURE ONLY Squamous cell lung cancer Pt saw Dr. Welch as outpt and decided not to pursue any treatment. She was in hospice prior but currently lives at home with DELICATESSEN DEPARTMENT MANAGER for pain control. Pt reported coughing up blood starting from 4 days ago. Pt reported that she wants to be comfort measure only. Currently sat well on 3L NC. DELICATESSEN DEPARTMENT MANAGER ordered. Left pleural effusion vs infiltrate. Hospice consult ordered Acute Delirium in the setting of Chronic Dementia ed teacher sitter Community acquired pneumonia on Moxifloxacin. Cont to monitor the pt. Tylenol PRN. Constipation Milk of mag, metamucil, and fleet enema PRN. Type 2 diabetes mellitus CHIPPER OPERATOR, cont to monitor the pt Depression with anxiety Cont home med Paroxetine with Ativan Rheumatoid lung disease with rheumatoid arthritis Pt not on outpt meds for RA. On Serverent and duoneb. disposition: pfs consulted for hospice referral . dnr dni ed teacher A-FIB/CHADSVASC SCREEN A-FIB/CHADSVASC A-FIB History Current/History of A-Fib/PAF?: No Current Oral Anticoagulant The: No A-FIB/CHADSVASC A-FIB History Current/History of A-Fib/PAF?: No Current Oral Anticoagulant The: No VS, I&O, 24H, Fishbone Vital Signs/I&O Vital Signs Date Time Temp Pulse Resp B/P (MAP) Pulse Ox O2 Delivery O2 Flow Rate FiO2 01/03/19 09:06 22 01/03/19 09:00 3.0 01/03/19 07:46 108 01/03/19 06:00 97.0 160/72 (101) 91 12/31/18 17:16 Nasal Cannula I&O- Last 24 Hours up to 6 AM 01/03/19 06:00 Intake Total 0 ml Output Total 0 ml Balance 0 ml AILYN KEITH MD January 03, 2019 10:29
[2019-01-03] MEDS: PARoxetine 20 MG TAB PO SCH (21:00)
[2019-01-04] MEDS: MORPHINE 10MG/0.5ML ORAL CONCENTRATE SOLUTION U/D SL PRN ×5 (00:52→22:23)
[2019-01-04] MEDS: IPRATROPIUM 0.5MG/ALBUTEROL 2.5MG INH SOL UD 3ML (DUONEB)(J7620) NEB SCH ×4 (01:15→19:57)
[2019-01-04] MEDS: LORazepam 2 MG/ML VIAL (J2060) IV PRN ×4 (01:20→23:19)
[2019-01-04] MEDS: MOXIFLOXACIN 400 MG TAB PO SCH (05:37)
[2019-01-04 06:00] VITALS: BP 194/88
--- NOTE | 2019-01-04 06:52 | IPNPDOC ---
Date Seen The patient was seen on 01/04/19. Progress Note SUBJECTIVE: Pt's blood pressure is uncontrolled with systolic of 190. Pain meds for BUILDING WRECKER adequately given, but pt unable to complain of symptoms due to AMS and acute delirium on baseline dementia. at best, pt mumbles and is incoherent. 9am norvasc and metoprolol given now. 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 just received ativan due to severe agitation per RN, still requiring a sitter. Per sitter, pt usually gets belligerent when she wakes up, and has not been eating well, only about 10-15% of her meals. Pt snacks on her raspberries at the bedside. PHYSICAL EXAMINATION: VITALS: PLS SEE BELOW General Exam: sedated. dry mucus membranes Eye Exam: Positive: Conjunctiva & lids normal; Negative: Sclera icteric ENT Exam: Positive: Atraumatic Neck Exam: Positive: Supple Chest Exam: Positive: Clear to auscultation, Normal air movement; Negative: Rales, Rhonchi, Wheezing Heart Exam: Positive: Rate Normal, Regular Rhythm, Normal S1, Normal S2; Negative: Murmurs Abdomen Exam: Positive: BS Hypoactive, Soft; Negative: Tenderness Extremity Exam: Positive: Normal pulses Skin Exam: Positive: Nl turgor and temperature Neuro Exam: Positive: Normal Speech, Normal Tone Psych Exam: Positive: Mental status NL, Memory Intact, Oriented x 3 LABORATORY DATA, IMAGING STUDIES, MICROBIOLOGY: REVIEWED, PLS SEE BELOW ASSESSMENT AND PLAN: Pt is a 78 yo female with PMH of 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 It was noted that patient was in hospice before but no longer in hospice as pt went to the ER prior while she was in hospice. Patient reported constant severe sharp pain in b/l lumbar back pain and b/l shoulder pain that worsens with movement. She reported chills and that she had been coughing up blood starting 4 days ago. When being asked if she has any sputum, pt answered yes and replied that she has pink color sputum, reported chills but no fever. Reported 1 sick contact months ago. Denies any chest pain, palpitation, SOB. Pt reported mild abdominal pain but reported constipation 1 BM every 3 days, and that her abd pain was improved after BM. PT reported that at this time she will want to be COMFORT MEASURE ONLY Squamous cell lung cancer Pt saw Dr. Welch as outpt and decided not to pursue any treatment. She was in hospice prior but currently lives at home with GRAB DRIVER for pain control. Pt reported coughing up blood starting from 4 days ago. Pt reported that she wants to be comfort measure only. Currently sat well on 3L NC. GRAB DRIVER ordered. Left pleural effusion vs infiltrate. Hospice consult ordered Acute Delirium in the setting of Chronic Dementia vamp strap ironer sitter Community acquired pneumonia on Moxifloxacin. Cont to monitor the pt. Tylenol PRN. Constipation Milk of mag, metamucil, and fleet enema PRN. Type 2 diabetes mellitus BUILDING WRECKER, cont to monitor the pt HTN uncontrolled given norvasc and metoprololwith holding parameters Depression with anxiety Cont home med Paroxetine with Ativan Rheumatoid lung disease with rheumatoid arthritis Pt not on outpt meds for RA. On Serverent and duoneb. disposition: pfs consulted for hospice referral . dnr dni vamp strap ironer A-FIB/CHADSVASC SCREEN A-FIB/CHADSVASC A-FIB History Current/History of A-Fib/PAF?: No Current Oral Anticoagulant The: No A-FIB/CHADSVASC SCREEN A-FIB/CHADSVASC A-FIB History Current/History of A-Fib/PAF?: No Current Oral Anticoagulant The: No A-FIB/CHADSVASC A-FIB History Current/History of A-Fib/PAF?: No Current Oral Anticoagulant The: No VS, I&O, 24H, Fishbone Vital Signs/I&O Vital Signs Date Time Temp Pulse Resp B/P (MAP) Pulse Ox O2 Delivery O2 Flow Rate FiO2 01/04/19 06:00 98.1 119 24 194/88 (123) 90 3.0 12/31/18 17:16 Nasal Cannula I&O- Last 24 Hours up to 6 AM 01/04/19 06:00 Intake Total 0 ml Output Total 0 ml Balance 0 ml AILYN KEITH MD January 04, 2019 06:52
[2019-01-04] MEDS ORDERED: METOPROLOL SUCC (TopROL XL) 100MG *XL* TAB PO ONE (07:00)
[2019-01-04] MEDS ORDERED: amLODIPine 10 MG TAB PO ONE (07:00)
[2019-01-04] MEDS: SALMETEROL DISKUS 50MCG INHALER (SEREVENT) INH SCH ×2 (07:40→19:56)
[2019-01-04] MEDS: predniSONE 10 MG TAB PO SCH (08:17)
[2019-01-04] MEDS: LORazepam 0.5 MG TAB PO SCH ×2 (08:17→20:41)
[2019-01-04] MEDS: PANTOPRAZOLE 40MG TAB (PROTONIX) PO SCH (08:18)
[2019-01-04] MEDS: **NOTE PATIENT COMMENT** MISC XX SCH (08:18)
[2019-01-04] MEDS: ASPIRIN 81 MG ENTERIC TAB PO SCH (08:18)
[2019-01-04 08:32] VITALS: BP 170/80
[2019-01-05] MEDS: IPRATROPIUM 0.5MG/ALBUTEROL 2.5MG INH SOL UD 3ML (DUONEB)(J7620) NEB SCH (02:00)
--- NOTE | 2019-01-05 10:39 | DSES ---
DATE OF ADMISSION: 12/31/2018 DATE OF EXPIRATION: 01/05/2019 ATTENDING PHYSICIAN: Mitchell olson. PRIMARY CARE PROVIDER: Dr. Everette Welch. 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 SECONDARY DIAGNOSES: Community acquired pneumonia. Type 2 diabetes. Rheumatoid arthritis. Stage III chronic kidney disease. Protein calorie malnutrition with low albumin. HISTORY: Patient was admitted with stage IV squamous cell lung cancer. She was placed on hospice but apparently dis-enrolled from hospice. She came to the emergency room short of breath and was found to have community acquired pneumonia and was admitted for treatment of this. HOSPITAL COURSE: Patient was admitted to a medical bed. She was treated with moxifloxacin. She was given pain control and elected to pursue comfort measure status. It looks like she spent most of her hospitalization on comfort status and peacefully on 01/05/2019.
== END 2019-01-05 01:05 | disposition expired | DRG 947 ==
LOC: M ED 11:55 → M ED INP 15:13 → M MSPAV 17:35
PROVIDERS: ADMIT General Practice; ATTEND Family Medicine
DX: G89.3 Neoplasm related pain (acute) (chronic) (principal); E43 Unspecified severe protein-calorie malnutrition; J18.9 Pneumonia, unspecified organism; C34.90 Malignant neoplasm of unspecified part of unspecified bronchus or lung; F03.91 Unspecified dementia, unspecified severity, with behavioral disturbance; J91.0 Malignant pleural effusion; M54.9 Dorsalgia, unspecified; Z51.5 Encounter for palliative care; E11.9 Type 2 diabetes mellitus without complications; M05.60 Rheumatoid arthritis of unspecified site with involvement of other organs and systems; N18.3 Chronic kidney disease, stage 3 (moderate); M06.9 Rheumatoid arthritis, unspecified; G47.33 Obstructive sleep apnea (adult) (pediatric); Z91.19 Patient's noncompliance with other medical treatment and regimen; I12.9 Hypertensive chronic kidney disease with stage 1 through stage 4 chronic kidney disease, or unspecified chronic kidney disease; Z79.899 Other long term (current) drug therapy; Z88.2 Allergy status to sulfonamides; E78.00 Pure hypercholesterolemia, unspecified; E55.9 Vitamin D deficiency, unspecified; I25.10 Atherosclerotic heart disease of native coronary artery without angina pectoris; Z87.891 Personal history of nicotine dependence; M05.10 Rheumatoid lung disease with rheumatoid arthritis of unspecified site; K59.00 Constipation, unspecified; F41.9 Anxiety disorder, unspecified; F32.9 Major depressive disorder, single episode, unspecified